=== PATIENT | male | born 1995 | race African-American/Black ===

== ENCOUNTER 2017-10-03 14:05 | Emergency (ER) | payer OTHER ==
[~2017-10-03] VITALS: Ht 182.9 cm; Wt 106.0 kg
[2017-10-03 14:09] VITALS: TEMP 36.8; Ht 182.9 cm; Wt 106.0 kg
--- NOTE | 2017-10-03 16:16 | EMERGENCY ROOM VISIT NOTE ---
History Report prepared by Isabel: Alfredito Kemp Under the Supervision of: Dr. Aashish Shaw M.D. First contact with patient: 15:47 Chief Complaint: CHEST PAIN Stated Complaint: CHEST PAIN, LEFT SHOULDER AND ARM PAIN Nursing Triage Summary: left upper chest pain near the shoulder and shoulder pain with a cough no reports of injury History of Present Illness The patient is a 22 year old male who presents to the Emergency Room with complaints of constant chest pain for the past 4 days which he states is worse with movement and feels like a sharp pain. He currently rates his discomfort as a 7/10 in severity. He additionally states that the pain radiates into his left shoulder and down his left arm, and he states that he has a cough. He states that the pain did not start while doing anything. He notes that he smokes marijuana, though he has never used cocaine. The patient notes that he went to [place] on September 03, and he came back on September 12. He denies any shortness of breath, coughing up blood, loss of consciousness, and palpitations. The patient has no other medical problems, and he does not take any medication daily. Source of History: patient Onset: 4 days ago Position: chest Symptom Intensity: 7/10 Quality: sharp Timing: constant Modifying Factors (Worsening): movement Associated Symptoms: + cough, No LOC, No SOB Note: Associated symptoms: Left shoulder pain and left arm pain Review of Systems See HPI for pertinent positives and negatives. A total of ten systems were reviewed and were otherwise negative. Past Medical & Surgical Medical Problems: (1) No chronic diseases present Family History Patient reports no known family medical history. Social History Drug Use: marijuana Marital Status: single Occupation Status: [employer] student Current/Historical Medications No Active Prescriptions or Reported Meds Allergies Coded Allergies: No Known Allergies (Unverified , 10/03/17) Physical Exam Vital Signs Date Time Temp Pulse Resp B/P (MAP) Pulse Ox O2 Delivery O2 Flow Rate FiO2 10/03/17 16:41 83 10/03/17 16:24 100 Room Air 10/03/17 14:09 36.8 98 16 185/95 98 Room Air Physical Exam Physical Exam GENERAL: He is oriented to person, place, and time. He appears well-developed and well-nourished. He does not appear distressed. ____ HENT: Exam performed. Head: Normocephalic and atraumatic. Right Ear: External ear normal. No mastoid tenderness. Left Ear: External ear normal. No mastoid tenderness. Mouth/Throat: The oropharynx is clear and moist. No trismus in the jaw. No dental abscesses or uvula swelling. No oropharyngeal exudate or tonsillar abscesses. ____ EYES: Conjunctivae and EOM are normal. Pupils are equal, round, and reactive to light. Right eye exhibits no discharge. Left eye exhibits no discharge. No scleral icterus. ____ NECK: Normal range of motion. Neck supple. No JVD present. No spinous process tenderness present. No carotid bruit present. No rigidity. No tracheal deviation and normal range of motion present. No Brudzinski's sign and no Kernig 's sign noted. ____ CV: Normal rate, regular rhythm, normal heart sounds and intact distal pulses. There is no peripheral edema. Palpable radial pulses bue. ____ PULM/CHEST: Effort normal and breath sounds normal. No respiratory distress. No stridor. He has no wheezes. He has no rales. Chest Wall: He exhibits pain in the chest wall with movement of the left shoulder. ____ ABD: The abdomen is soft. Bowel sounds are normal. He has no distension. No mass is present. There is no tenderness. There is no rebound, no guarding, no Cedillo's sign and no tenderness at McBurney's point. Rovsig negative MUSC/SKEL: Normal range of motion. There is no peripheral edema, tenderness or deformity. LYMPH: No cervical adenopathy. ____ NEURO: He is alert and oriented to person, place, and time. He has normal strength. No cranial nerve deficit or sensory deficit. Coordination and gait normal. GCS eye subscore is 4. GCS verbal subscore is 5. GCS motor subscore is 6. cerbellar tests wnl. ____ SKIN: Skin is warm and dry. He is not diaphoretic. ____ PSYCH: He has a normal mood and affect. His behavior is normal. Judgment and thought content normal. ____ Medical Decision & Procedures ER Provider Diagnostic Interpretation: Radiology results as stated below per my review and radiologist interpretation: CHEST 2 VIEWS ROUTINE CLINICAL HISTORY: cp dyspnea COMPARISON STUDY: No previous studies for comparison. FINDINGS: The bones soft tissues and hemidiaphragms are normal. The cardiomediastinal silhouette is normal. The lungs are clear. The pulmonary vasculature is normal. IMPRESSION: Negative chest. The above report was generated using voice recognition software. It may contain grammatical, syntax or spelling errors. Electronically signed by: Carter Arredondo M.D. 10/03/2017 4:41 PM Dictated Date/Time: 10/03/2017 4:41 PM Laboratory Results Test 10/03/17 16:15 D-Dimer < 190 ug/L FEU (0-500) Laboratory results reviewed by me ECG Indication: chest pain Rate (beats per minute): 89 Rhythm: sinus rhythm Findings: no acute ischemic change, no ectopy, other (MA, QRS, and QTC intervals are within normal limits. No ST elevation or depressoin.) Change: Patient's EKG was interpreted by me. ED Course 1550: The patient was evaluated in room B9. A complete history and physical exam was performed. 1709: VSS. EKG, labs, and imagine are within normal limits. Repeat blood pressure was 137/86 without intervention. He will follow up with his PCP. DISCHARGE - Plan of care discussed with patient and questions answered. The patient was given both verbal and printed discharge instructions. The patient verbalized understanding and ability to comply. The patient is to seek outpatient follow up as noted in the discharge instructions. The patient verbalized understanding and ability to comply. The patient is discharged in stable condition. The patient was instructed to return for worsening symptoms. Medical Decision VSS. EKG, labs, and imagine are within normal limits. Repeat blood pressure was 137/86 without intervention. He will follow up with his PCP. Medication Reconcilliation Current Medication List: was personally reviewed by me Blood Pressure Screening Patient's blood pressure: Elevated blood pressure Impression Primary Impression: Chest wall pain Scribe Attestation The scribe's documentation has been prepared under my direction and personally reviewed by me in its entirety. I confirm that the note above accurately reflects all work, treatment, procedures, and medical decision making performed by me. The chart was completed utilizing [employer] voice recognition software. Grammatical errors, random word insertions, pronoun errors, and incomplete sentences are an occasional consequence of this system due to software limitations, ambient noise, and hardware issues. Any formal questions or concerns about the content, text, or information contained within the body of this dictation should be directly addressed to the physician for clarification. Departure Information Dispostion Home / Self-Care Prescriptions No Active Prescriptions or Reported Meds Referrals No Doctor, Assigned (PCP) Forms HOME CARE DOCUMENTATION FORM, IMPORTANT VISIT INFORMATION, School Instructions, Work Instructions Patient Instructions ED Chest Pain Costochondritis, My [facility]
--- NOTE | 2017-10-03 16:43 | DIAGNOSTIC IMAGING REPORT ---
CHEST 2 VIEWS ROUTINE CLINICAL HISTORY: cp dyspnea COMPARISON STUDY: No previous studies for comparison. FINDINGS: The bones soft tissues and hemidiaphragms are normal. The cardiomediastinal silhouette is normal. The lungs are clear. The pulmonary vasculature is normal. IMPRESSION: Negative chest. The above report was generated using voice recognition software. It may contain grammatical, syntax or spelling errors. Electronically signed by: Carter Arredondo M.D. 10/03/2017 4:41 PM Dictated Date/Time: 10/03/2017 4:41 PM
[2017-10-03 17:15] VITALS: BP 134/79; PULSE 72; O2SAT 100
== END 2017-10-03 17:28 | disposition home or self-care (01) ==
LOC: C.EDB 14:08
DX: R07.89 Other chest pain (principal); M79.602 Pain in left arm; M25.512 Pain in left shoulder